=== PATIENT | female | born 1940 | race Caucasian/White ===

== ENCOUNTER 2016-10-20 11:25 | Outpatient (CLI) | payer MEDICARE ==
--- NOTE | 2016-10-21 09:12 | RAD ---
THREE VIEWS OF THE RIGHT SHOULDER: Date: 10-20-16 Comparison: 04-08-16 History: Pain, fall. FINDINGS: There is increased density in the right lung apex medially. This may represent a right apical lung mass. There is acromioclavicular joint space narrowing with mild undersurface osteophyte formation. There is no widening of the AC or CC interspace. There is no displaced fracture or evidence of di slocation seen. There may be an asymmetric nodular density superior to the minor fissure, measuring approximately 1 cm. This will also be better assessed on CT. IMPRESSION: 1. No evidence for acute fracture or dislocation involving the right shoulder. There is right AC j oint degenerative change. 2. Soft tissue density is seen in the medial right lung apex. This could represent a pulmonary par enchymal mass lesion. A CT examination of the chest is advised. Code T POS: STEW
== END 2016-10-20 11:26 | disposition home or self-care (01) ==
LOC: MADRAD 11:25
PROVIDERS: ATTEND Obstetrics & Gynecology
DX: M25.512 Pain in left shoulder (principal)